=== PATIENT | female | born 1945 | race Caucasian/White ===

== ENCOUNTER 2017-04-09 20:14 | Emergency (ER) | payer MEDICARE, OTHER | END 2017-04-09 22:20 | disposition home or self-care (01) | LOC: ER1 20:14 | DX: S29.012A Strain of muscle and tendon of back wall of thorax, initial encounter (principal); M06.9 Rheumatoid arthritis, unspecified; F17.210 Nicotine dependence, cigarettes, uncomplicated; Z90.49 Acquired absence of other specified parts of digestive tract; Z79.891 Long term (current) use of opiate analgesic; X58.XXXA Exposure to other specified factors, initial encounter | CPT/HCPCS: 36415; 71101; 81001; 96374; 96375; 99284; J1885 ==